=== PATIENT | female | born 1985 | race Caucasian/White ===

== ENCOUNTER → 2024-04-12 09:52 | Outpatient (CLI) | payer OTHER, SELFPAY | LOC: PHYS 09:53 | PROVIDERS: Family Provider Student in an Organized Health Care Education/Training Program; PCP Student in an Organized Health Care Education/Training Program; Referring Provider Orthopaedic Surgery; Visit Provider Orthopaedic Surgery | DX: G56.20 Lesion of ulnar nerve, unspecified upper limb (principal); G56.00 Carpal tunnel syndrome, unspecified upper limb | CPT/HCPCS: 95886; 95909 ==

== ENCOUNTER → 2024-07-03 14:40 | Outpatient (RCR) | payer OTHER, SELFPAY ==
--- NOTE | 2023-05-24 16:10 | PT.OIE ---
Current Diagnoses Noninflammatory disorder of vagina, unspecified (05/24/23) Visit Care Team Role Provider Type Shona Craig MD Attending Provider Non-Staff Family Provider Primary Care Provider Referring Provider Specialty: Medical Address: [address] [place] [address], [id number] Email: Physical Therapy Initial Evaluation PT-OP-A Visit Information Start: 05/20/23 18:43 Freq: Status: Active Protocol: Document 05/24/23 11:23 LRN (Rec: 05/24/23 12:04 LRN [id number]) Out-Patient Physical Therapy Visit Information Visit Information Visit Type Initial Evaluation Visit Start Time 11:23 Visit Stop Time 12:03 Visit Number 1 Evaluation Information Evaluation Date 05/24/23 Precautions Precautions Pt reported: hx of labial tearing during childbirth 4 yrs ago. PT-OP-B Current Condition Start: 05/20/23 18:43 Freq: Status: Active Protocol: Document 05/24/23 11:23 LRN (Rec: 05/24/23 12:04 LRN [id number]) Current Condition History of Current Condition Onset Date 4 yrs ago. Current Complaints Feeling of heaviness/pressure at end of day and with lifting . History of Current Condition Pt reports having her daughter 4 yrs ago in June required 1 push to get 10# baby deliviered. She denies having urinary or bowel problems, but has with working out and moving around a feeling of heaviness and discomfort, making her feel as though her lower abdomen seems swollen and sitting lower than it should. She notices with moving plants in her garden she feels discomfort and heaviness and must do Kegel or she feels tissues straining below. She reports being active prior to but has started exercising off/on for last 6 month with general body weight training and yoga . 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 Prior Treatments and Tests PT during to prepare her for childbirthing and for hip pain. Developmental History Developmental History G1, P1. Pt reports labial tearing during childbirth and thinks vaginally as well, unknown severity. History of R ankle reconstruction. Treatment Goals Patient/Caregiver Goals Pt goals: Relieve abdominal PF heaviness and pressure, improve PF strength, improve coordination of core intra- abdominal pressure relief with home activities, HEP. 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 PT-OP-C Subjective Start: 05/20/23 18:43 Freq: Status: Active Protocol: Document 05/24/23 11:23 LRN (Rec: 05/24/23 12:04 LRN [id number]) Patient Questionnaires Pelvic Pain and Urgency/Frequency Patient Symptom Scale Pelvic Pain Score 4 PT-OP-I Pelvic Floor Start: 05/20/23 18:43 Freq: Status: Active Protocol: Document 05/24/23 11:23 LRN (Rec: 05/24/23 12:16 LRN [id number]) Pelvic Floor Assessment Pelvic Clock Pelvic Clock 12-3 Tenderness Pelvic Clock 3-6 Tenderness Prolapse Prolapse Comments Not able to fully assess due to pt's contraceptive O-ring in place. Perineal Descent Resting Absent Bearing Present Contraction Ability Voluntary Contraction Weak Voluntary Relaxation Weak Manual Muscle Testing Left 1 Manual Muscle Testing Right 1 Manual Muscle Testing Anterior 0 Manual Muscle Testing Posterior 1 Muscle Endurance (Seconds) 2 Number of Quick Contractions In 10 2 Seconds Comments Pelvic Floor Comments PF strength at PF Clock 6, strength is 3/5. PT-OP-J Posture/Palpation/Skin Start: 05/20/23 18:43 Freq: Status: Active Protocol: Document 05/24/23 11:23 LRN (Rec: 05/24/23 12:04 LRN [id number]) Posture Evaluation Position Standing Head/C-Spine Posture Neutral Position T-Spine Posture Neutral L-Spine Posture Neutral Arm Posture (L) Internally Rotated,(R) Internally Rotated Pelvis Posture Neutral Weight Distribution Weight Shifted Anterior Hip Posture (L) Neutral,(R) Neutral,(L) Externally Rotated,(R) Externally Rotated Ankle/Foot Posture (L) Dorsiflexed,(R) Dorsiflexed,(L) Calcaneal Inversion Foot Arch (R) Low Arch,(R) No Arch PT-OP-K Range of Motion Start: 05/20/23 18:43 Freq: Status: Active Protocol: Document 05/24/23 11:23 LRN (Rec: 05/24/23 12:04 LRN [id number]) Lumbar Spine Range of Motion Lumbar Spine Active Degrees Testing Position Standing Flexion 90 Extension 25 Rotation Left 15 Rotation Right 40 Lateral Flexion Left 23 Lateral Flexion Right 23 ROM Limitations Soft Tissue Tightness Comments R shoulder and neck tightness with R trunk rotation. Hip Goniometric Range of Motion Hip Right Passive Testing Position Supine Internal Rotation 30 External Rotation 75 Left Passive Testing Position Supine Internal Rotation 30 External Rotation 75 PT-OP-M Strength Start: 05/20/23 18:43 Freq: Status: Active Protocol: Document 05/24/23 11:23 LRN (Rec: 05/24/23 12:04 LRN [id number]) Trunk Strength Trunk Manual Muscle Testing Core Stabilization Generally 4+/5 Hip Strength Hip Manual Muscle Testing Right Comments Strength is 5/5. Left Comments Strength is 5/5. PT-OP-Q Treatments Start: 05/20/23 18:43 Freq: Status: Active Protocol: Document 05/24/23 11:23 LRN (Rec: 05/24/23 12:12 LRN [id number]) Self-Care/Home Management Treatment Education Patient Education Home Exercise Program Other Education Discussed results of evaluation, goals, and plan of care (POC) with pt, discussed attendance/cx/dns policy; pt agreeable to goals, attendance /cx/dns policy and POC. Activities Self-Care/Home Management Activities Issued & reviewed HEP: Ellie ex's and discussed exercise of Quick Flicks, Long Holds and Aggravators. PT-OP-T Assessment and Plan Start: 05/20/23 18:43 Freq: Status: Active Protocol: Document 05/24/23 11:23 LRN (Rec: 05/24/23 12:04 LRN [id number]) Physical Therapy Assessment Rehab Potential Rehabilitation Potential Good Evaluation Complexity Number of Personal Factors/Comorbidities 1-2 Number of Body Systems Impaired 3 Clinical Presentation at Evaluation Evolving Impairments Impairments Pain,ROM,Strength Goals Four Impairment Decreased shavon hip IR PROM. Short Term Goal (STG) Improve hip IR PROM to 40-45 deg's. STG Duration 4 wks-06/24/23 Three Impairment Decreased PF strength and endurance. Short Term Goal (STG) Pt will be able to perform 5-6 quick PF contractions in 10 seconds. STG Duration 6 wks-07/08/23 State Director Goal (LTG) Pt will be able to sustain a pelvic floor contraction in supine x 10 seconds and in standing 5 secs with out upper abdominal activation. LTG Duration 12 wks-08/19/23 Two Impairment PF heaviness and pressure. Short Term Goal (STG) Pt educated in transfers to lessen core intra-abdominal pressure via coordination of proper breaths (rib cage expansion) with ADLs, transfers, body mechanics and exercise to decrease downward pressure on the PF. STG Duration 6 wks-07/08/23 State Director Goal (LTG) Pt will report an overall reduction in abdominal PF heaviness and pressure LTG Duration 12 wks-08/19/23 One Impairment Pt lacks an independent self care HEP. Short Term Goal (STG) Pt will be able to isolate a PF contraction without overuse of substitute muscles of abdominal, gluteal, and hip AD 's. STG Duration 6 wks-07/08/23 Fdc Goal (LTG) Pt will be independent in a self care HEP for PF strengthening exercises coordinating with breath and hip IR stretches. LTG Duration 12 wks-08/19/23 Assessment Summary Assessment Pt is a 37 yo female with complaints of PF heaviness and pressure in the absence of urinary or bowel dysfunction. The pt is very weak in her PF with discomfort in the L lateral wall of her PF, possbily due to tightness. She has gapping of her PF also indicating soft tissue tightness. Placement of her contraceptive ring made assessment of the deep PF not possible and difficulty identifying for prolapse; therefore further assesment will be performed at her next session as she reports it will be the week when she removes the ring. The pt has some tightness of her hip internal rotators, but hip strength is good. Core mobility is decreased with R rotation but strength is good. She has a mild DR with probable rotational weakness. The pt will benefit from skilled physical therapy for pt education, strengthening & ROM ex's, ther act training for posture, body mechanics and transfers, reduction of core intra-abdominal pressure, manual therapy and EMG biofeedback for PF strengthening. Physical Therapy Plan Frequency and Duration Frequency of Treatment 1x/Week Duration of treatment (weeks) 12 Plan of Care Start Date 05/24/23 Plan of Care End Date 08/19/23 Therapeutic Interventions Therapeutic Interventions Coordination Training,Home Exercise Program,Joint Mobilizations,Neuromuscular Re -education,Self-Care/Home Management,Soft Tissue Mobilization,Therapeutic Activities,Therapeutic Exercises Modalities Biofeedback,Electric Stimulation Next Visit Focus/Plan Next Note Type Treatment Note Next Visit Plan PF assessmsent for Deep PF strength and prolapse, PF STM of trP treatment and stretch, EMG biofeedback for pelvic floor strengthening and endurance training, abdominal tension release and coordination of diaphragmatic breathing with transfers & ADLs (pelvic decompression exercises).
--- NOTE | 2023-06-09 12:44 | PT.OTN ---
Current Diagnoses Noninflammatory disorder of vagina, unspecified (06/09/23) Physical Therapy Treatment Note PT-OP-A Visit Information Start: 05/20/23 18:43 Freq: Status: Active Protocol: Document 06/09/23 11:18 LRN (Rec: 06/09/23 12:41 LRN [id number]) Out-Patient Physical Therapy Visit Information Visit Information Visit Type Treatment Note Visit Start Time 11:18 Visit Stop Time 11:58 Visit Number 2 Evaluation Information Evaluation Date 05/24/23 Precautions Precautions Pt reported: hx of labial tearing during childbirth 4 yrs ago. PT-OP-B Current Condition Start: 05/20/23 18:43 Freq: Status: Active Protocol: Document 05/24/23 11:23 LRN (Rec: 05/24/23 12:04 LRN [id number]) Current Condition History of Current Condition Onset Date 4 yrs ago. Current Complaints Feeling of heaviness/pressure at end of day and with lifting . History of Current Condition Pt reports having her daughter 4 yrs ago in June required 1 push to get 10# baby mickeyiered. She denies having urinary or bowel problems, but has with working out and moving around a feeling of heaviness and discomfort, making her feel as though her lower abdomen seems swollen and sitting lower than it should. She notices with moving plants in her garden she feels discomfort and heaviness and must do Kegel or she feels tissues straining below. She reports being active prior to but has started exercising off/on for last 6 month with general body weight training and yoga . 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 Prior Treatments and Tests PT during to prepare her for childbirthing and for hip pain. Developmental History Developmental History G1, P1. Pt reports labial tearing during childbirth and thinks vaginally as well, unknown severity. History of R ankle reconstruction. Treatment Goals Patient/Caregiver Goals Pt goals: Relieve abdominal PF heaviness and pressure, improve PF strength, improve coordination of core intra- abdominal pressure relief with home activities, HEP. 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 PT-OP-C Subjective Start: 03/29/24 18:43 Freq: Status: Active Protocol: Document 06/09/23 11:18 LRN (Rec: 06/09/23 12:41 LRN [id number]) OP-PT Subjective Patient Comments Patient Comments Pt states she has been sick and coughing, but feels better now. PT-OP-I Pelvic Floor Start: 05/20/23 18:43 Freq: Status: Active Protocol: Document 06/09/23 11:18 LRN (Rec: 06/09/23 12:41 LRN [id number]) Pelvic Floor Assessment Pelvic Clock Pelvic Clock Other No tenderness around the PF clock Prolapse Cystocele Grade 2 Perineal Descent Resting Absent Bearing Present Contraction Ability Voluntary Contraction Weak Voluntary Relaxation Weak Manual Muscle Testing Left 1 Manual Muscle Testing Right 0 Manual Muscle Testing Anterior 0 Manual Muscle Testing Posterior 2 Muscle Endurance (Seconds) 2 Number of Quick Contractions In 10 2 Seconds PT-OP-J Posture/Palpation/Skin Start: 05/20/23 18:43 Freq: Status: Active Protocol: Document 05/24/23 11:23 LRN (Rec: 05/24/23 12:04 LRN [id number]) Posture Evaluation Position Standing Head/C-Spine Posture Neutral Position T-Spine Posture Neutral L-Spine Posture Neutral Arm Posture (L) Internally Rotated,(R) Internally Rotated Pelvis Posture Neutral Weight Distribution Weight Shifted Anterior Hip Posture (L) Neutral,(R) Neutral,(L) Externally Rotated,(R) Externally Rotated Ankle/Foot Posture (L) Dorsiflexed,(R) Dorsiflexed,(L) Calcaneal Inversion Foot Arch (R) Low Arch,(R) No Arch PT-OP-K Range of Motion Start: 05/20/23 18:43 Freq: Status: Active Protocol: Document 05/24/23 11:23 LRN (Rec: 05/24/23 12:04 LRN [id number]) Lumbar Spine Range of Motion Lumbar Spine Active Degrees Testing Position Standing Flexion 90 Extension 25 Rotation Left 15 Rotation Right 40 Lateral Flexion Left 23 Lateral Flexion Right 23 ROM Limitations Soft Tissue Tightness Comments R shoulder and neck tightness with R trunk rotation. Hip Goniometric Range of Motion Hip Right Passive Testing Position Supine Internal Rotation 30 External Rotation 75 Left Passive Testing Position Supine Internal Rotation 30 External Rotation 75 PT-OP-M Strength Start: 05/20/23 18:43 Freq: Status: Active Protocol: Document 05/24/23 11:23 LRN (Rec: 05/24/23 12:04 LRN [id number]) Trunk Strength Trunk Manual Muscle Testing Core Stabilization Generally 4+/5 Hip Strength Hip Manual Muscle Testing Right Comments Strength is 5/5. Left Comments Strength is 5/5. PT-OP-Q Treatments Start: 05/20/23 18:43 Freq: Status: Active Protocol: Document 06/09/23 11:18 LRN (Rec: 06/09/23 12:41 LRN [id number]) Therapeutic Exercises Supine Exercises Long Hold Kegels Supine Exercise Name Long Hold Kegels Reps/Minutes 5' Comments Assessed PF endurance (see above) Quick Flick Kegels Supine Exercise Name Quick Flick Kegels Reps/Minutes 5' Comments Assessed PF strength around the PF clock (see above) Other Exercises Vemg PF contractions Other Exercise Name Vemg stim for assist of PF contractions. Reps/Minutes 8' Comments Pt cued to give a little assist for relaxation between contractions. Neuro Re-Education Treatment Other Activities Vemg for PF awareness training Details PF stim for awareness training of proper PF contraction Reps/Duration 10' Comments Hooklie with legs on bolster. Extra time needed to determine max tolerated stim intensity for PF contraction. 1st session: 10:10 on/off, 50pps, intensity 18 2nd session: 5:10 on/off, 50pps, intensity 15 Self-Care/Home Management Treatment Education Patient Education Home Exercise Program Other Education Discussed the pt using coughing illnesses to perform aggrevator contraction strengthening. Activities Self-Care/Home Management Activities I/S pt to start walking program to improve circulation of PF ms. PT-OP-T Assessment and Plan Start: 05/20/23 18:43 Freq: Status: Active Protocol: Document 06/09/23 11:18 LRN (Rec: 06/09/23 12:41 LRN [id number]) Physical Therapy Assessment Goals Four Impairment Decreased shavon hip IR PROM. Short Term Goal (STG) Improve hip IR PROM to 40-45 deg's. STG Duration 4 wks-06/24/23 Three Impairment Decreased PF strength and endurance. Short Term Goal (STG) Pt will be able to perform 5-6 quick PF contractions in 10 seconds. STG Duration 6 wks-07/08/23 Drawing Machine Operator Goal (LTG) Pt will be able to sustain a pelvic floor contraction in supine x 10 seconds and in standing 5 secs with out upper abdominal activation. LTG Duration 12 wks-08/19/23 Two Impairment PF heaviness and pressure. Short Term Goal (STG) Pt educated in transfers to lessen core intra-abdominal pressure via coordination of proper breaths (rib cage expansion) with ADLs, transfers, body mechanics and exercise to decrease downward pressure on the PF. STG Duration 6 wks-07/08/23 Drawing Machine Operator Goal (LTG) Pt will report an overall reduction in abdominal PF heaviness and pressure LTG Duration 12 wks-08/19/23 One Impairment Pt lacks an independent self care HEP. Short Term Goal (STG) Pt will be able to isolate a PF contraction without overuse of substitute muscles of abdominal, gluteal, and hip AD 's. STG Duration 6 wks-07/08/23 Intermediate Goal (LTG) Pt will be independent in a self care HEP for PF strengthening exercises coordinating with breath and hip IR stretches. LTG Duration 12 wks-08/19/23 Assessment Summary Assessment Pt is a 37 yo female with complaints of PF heaviness and pressure in the absence of urinary or bowel dysfunction, but is very weak in her PF with discomfort in the L lateral wall of her PF initially. Today she demonstrates no tenderness of her PF; therefore no stretch needed, a cystocele grade 2, weakness of her PF and tightness of her R hip and lower abdomen. Physical Therapy Plan Frequency and Duration Frequency of Treatment 1x/Week Duration of treatment (weeks) 12 Plan of Care Start Date 05/24/23 Plan of Care End Date 08/19/23 Next Visit Focus/Plan Next Note Type Treatment Note Next Visit Plan Next: Start ex: eliptical or TM, ABdominal mobilization, R hip stretching. Education: coordination of diaphragmatic breathing with transfers & ADLs (pelvic decompression exercises). EMG biofeedback for pelvic floor strengthening and endurance training, abdominal tension release.
--- NOTE | 2023-06-14 16:32 | PT.OTN ---
Current Diagnoses Noninflammatory disorder of vagina, unspecified (06/14/23) Physical Therapy Treatment Note PT-OP-A Visit Information Start: 05/20/23 18:43 Freq: Status: Active Protocol: Document 06/14/23 10:35 LRN (Rec: 06/14/23 11:25 LRN [id number]) Out-Patient Physical Therapy Visit Information Visit Information Visit Type Treatment Note Visit Start Time 10:35 Visit Stop Time 11:23 Visit Number 3 Evaluation Information Evaluation Date 05/24/23 Precautions Precautions Pt reported: hx of labial tearing during childbirth 4 yrs ago. PT-OP-B Current Condition Start: 05/20/23 18:43 Freq: Status: Active Protocol: Document 05/24/23 11:23 LRN (Rec: 05/24/23 12:04 LRN [id number]) Current Condition History of Current Condition Onset Date 4 yrs ago. Current Complaints Feeling of heaviness/pressure at end of day and with lifting . History of Current Condition Pt reports having her daughter 4 yrs ago in June required 1 push to get 10# baby mickeyiered. She denies having urinary or bowel problems, but has with working out and moving around a feeling of heaviness and discomfort, making her feel as though her lower abdomen seems swollen and sitting lower than it should. She notices with moving plants in her garden she feels discomfort and heaviness and must do Kegel or she feels tissues straining below. She reports being active prior to but has started exercising off/on for last 6 month with general body weight training and yoga . 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 Prior Treatments and Tests PT during to prepare her for childbirthing and for hip pain. Developmental History Developmental History G1, P1. Pt reports labial tearing during childbirth and thinks vaginally as well, unknown severity. History of R ankle reconstruction. Treatment Goals Patient/Caregiver Goals Pt goals: Relieve abdominal PF heaviness and pressure, improve PF strength, improve coordination of core intra- abdominal pressure relief with home activities, HEP. 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 PT-OP-C Subjective Start: 03/29/24 18:43 Freq: Status: Active Protocol: Document 06/14/23 10:35 LRN (Rec: 06/14/23 11:25 LRN [id number]) OP-PT Subjective Patient Comments Patient Comments No changes, things aren't worse. Getting time to exercise. PT-OP-I Pelvic Floor Start: 05/20/23 18:43 Freq: Status: Active Protocol: Document 06/09/23 11:18 LRN (Rec: 06/09/23 12:41 LRN [id number]) Pelvic Floor Assessment Pelvic Clock Pelvic Clock Other No tenderness around the PF clock Prolapse Cystocele Grade 2 Perineal Descent Resting Absent Bearing Present Contraction Ability Voluntary Contraction Weak Voluntary Relaxation Weak Manual Muscle Testing Left 1 Manual Muscle Testing Right 0 Manual Muscle Testing Anterior 0 Manual Muscle Testing Posterior 2 Muscle Endurance (Seconds) 2 Number of Quick Contractions In 10 2 Seconds PT-OP-J Posture/Palpation/Skin Start: 05/20/23 18:43 Freq: Status: Active Protocol: Document 05/24/23 11:23 LRN (Rec: 05/24/23 12:04 LRN [id number]) Posture Evaluation Position Standing Head/C-Spine Posture Neutral Position T-Spine Posture Neutral L-Spine Posture Neutral Arm Posture (L) Internally Rotated,(R) Internally Rotated Pelvis Posture Neutral Weight Distribution Weight Shifted Anterior Hip Posture (L) Neutral,(R) Neutral,(L) Externally Rotated,(R) Externally Rotated Ankle/Foot Posture (L) Dorsiflexed,(R) Dorsiflexed,(L) Calcaneal Inversion Foot Arch (R) Low Arch,(R) No Arch PT-OP-K Range of Motion Start: 05/20/23 18:43 Freq: Status: Active Protocol: Document 05/24/23 11:23 LRN (Rec: 05/24/23 12:04 LRN [id number]) Lumbar Spine Range of Motion Lumbar Spine Active Degrees Testing Position Standing Flexion 90 Extension 25 Rotation Left 15 Rotation Right 40 Lateral Flexion Left 23 Lateral Flexion Right 23 ROM Limitations Soft Tissue Tightness Comments R shoulder and neck tightness with R trunk rotation. Hip Goniometric Range of Motion Hip Right Passive Testing Position Supine Internal Rotation 30 External Rotation 75 Left Passive Testing Position Supine Internal Rotation 30 External Rotation 75 PT-OP-M Strength Start: 05/20/23 18:43 Freq: Status: Active Protocol: Document 05/24/23 11:23 LRN (Rec: 05/24/23 12:04 LRN [id number]) Trunk Strength Trunk Manual Muscle Testing Core Stabilization Generally 4+/5 Hip Strength Hip Manual Muscle Testing Right Comments Strength is 5/5. Left Comments Strength is 5/5. PT-OP-Q Treatments Start: 05/20/23 18:43 Freq: Status: Active Protocol: Document 06/14/23 10:35 LRN (Rec: 06/14/23 11:25 LRN [id number]) Therapeutic Exercises Supine Exercises Piriformis stretch Supine Exercise Name Piriformis stretch - manual assist & indep (ankle over knee>KTC) Side right Reps/Minutes 3' Deep Breathing Supine Exercise Name 5-6 sec breaths Reps/Minutes 10x Long Hold Kegels Supine Exercise Name Long Hold Kegels w/rest after contract Reps/Minutes 3' Comments Pt needed to do a very small reverse Kegel for relaxation Quick Flick Kegels Supine Exercise Name Quick Flick Kegels - w/ rest after contraction Reps/Minutes 3' Comments Pt needed to do a very small reverse Kegel for relaxation Other Exercises Vemg PF contractions Other Exercise Name Vemg stim for assist of PF contractions. Reps/Minutes 3' Comments Pt cued to give a little assist for relaxation between contractions. Manual Therapy Treatment Soft Tissue Mobilization Lower Abdomen Body Location Urachus, bladder, superior glide of lower abdopmen Mobilization Type Sustained Pressure Intensity/Depth Moderate Body Position Hooklying Comments Legs on bolster. Neuro Re-Education Treatment Other Activities Vemg for PF awareness training Details PF stim for awareness training of proper PF relaxation after contraction Reps/Duration 8' Comments Hooklie with legs on bolster. Extra time needed to determine max tolerated stim intensity for PF contraction. 5:10 on/off, 50pps, intensity 17. Self-Care/Home Management Treatment Education Other Education Briefly discussed POC and need for more treatment visits. I /S pt to request to be put on waitlist if not offered. Education and discussion: coordination of diaphragmatic breathing with transfers & ADLs (pelvic decompression exercises). PT-OP-T Assessment and Plan Start: 05/20/23 18:43 Freq: Status: Active Protocol: Document 06/14/23 10:35 LRN (Rec: 06/14/23 11:25 LRN [id number]) Physical Therapy Assessment Goals Four Impairment Decreased shavon hip IR PROM. Short Term Goal (STG) Improve hip IR PROM to 40-45 deg's. STG Duration 4 wks-06/24/23 Three Impairment Decreased PF strength and endurance. Short Term Goal (STG) Pt will be able to perform 5-6 quick PF contractions in 10 seconds. STG Duration 6 wks-07/08/23 Longterm Goal (LTG) Pt will be able to sustain a pelvic floor contraction in supine x 10 seconds and in standing 5 secs with out upper abdominal activation. LTG Duration 12 wks-08/19/23 Two Impairment PF heaviness and pressure. Short Term Goal (STG) Pt educated in transfers to lessen core intra-abdominal pressure via coordination of proper breaths (rib cage expansion) with ADLs, transfers, body mechanics and exercise to decrease downward pressure on the PF. 06/14/23: Pt educated in core pressure mgmt through breath with transfers, ADLs & body mechanics. STG Duration 6 wks-07/08/23 progressed (need ed w/ex) Longterm Goal (LTG) Pt will report an overall reduction in abdominal PF heaviness and pressure LTG Duration 12 wks-08/19/23 One Impairment Pt lacks an independent self care HEP. Short Term Goal (STG) Pt will be able to isolate a PF contraction without overuse of substitute muscles of abdominal, gluteal, and hip AD 's. STG Duration 6 wks-07/08/23 [employer] Goal (LTG) Pt will be independent in a self care HEP for PF strengthening exercises coordinating with breath and hip IR stretches. LTG Duration 12 wks-08/19/23 Assessment Summary Assessment Pt is a 37 yo female with complaints of PF heaviness and pressure in the absence of urinary or bowel dysfunction ( tight abdominal region), but is very weak in her PF with discomfort in the L lateral wall of her PF initially. Pt hip R IR is only mildly stiff compared to L hip. Pt abdomen is very tight. Physical Therapy Plan Frequency and Duration Frequency of Treatment 1x/Week Duration of treatment (weeks) 12 Plan of Care Start Date 05/24/23 Plan of Care End Date 08/19/23 Next Visit Focus/Plan Next Note Type Treatment Note Next Visit Plan Next: Start ex: eliptical or TM, ABdominal mobilization, in 2 wks (06/28/23) recheck Hip IR ROM. EX: PF strengthening Manual: Abdominal release, core stab (no PF tenderness). EMG biofeedback for pelvic floor strengthening and endurance training, abdominal tension release.
--- NOTE | 2023-06-24 13:00 | PT.OTN ---
Current Diagnoses Noninflammatory disorder of vagina, unspecified (06/24/23) Physical Therapy Treatment Note PT-OP-A Visit Information Start: 05/20/23 18:43 Freq: Status: Active Protocol: Document 06/24/23 10:38 LRN (Rec: 06/24/23 11:21 LRN [id number]) Out-Patient Physical Therapy Visit Information Visit Information Visit Type Treatment Note Visit Start Time 10:38 Visit Stop Time 11:18 Visit Number 4 Evaluation Information Evaluation Date 05/24/23 Precautions Precautions Pt reported: hx of labial tearing during childbirth 4 yrs ago. PT-OP-B Current Condition Start: 05/20/23 18:43 Freq: Status: Active Protocol: Document 05/24/23 11:23 LRN (Rec: 05/24/23 12:04 LRN [id number]) Current Condition History of Current Condition Onset Date 4 yrs ago. Current Complaints Feeling of heaviness/pressure at end of day and with lifting . History of Current Condition Pt reports having her daughter 4 yrs ago in June required 1 push to get 10# baby mickeyiered. She denies having urinary or bowel problems, but has with working out and moving around a feeling of heaviness and discomfort, making her feel as though her lower abdomen seems swollen and sitting lower than it should. She notices with moving plants in her garden she feels discomfort and heaviness and must do Kegel or she feels tissues straining below. She reports being active prior to but has started exercising off/on for last 6 month with general body weight training and yoga . 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 Prior Treatments and Tests PT during to prepare her for childbirthing and for hip pain. Developmental History Developmental History G1, P1. Pt reports labial tearing during childbirth and thinks vaginally as well, unknown severity. History of R ankle reconstruction. Treatment Goals Patient/Caregiver Goals Pt goals: Relieve abdominal PF heaviness and pressure, improve PF strength, improve coordination of core intra- abdominal pressure relief with home activities, HEP. 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 PT-OP-C Subjective Start: 03/29/24 18:43 Freq: Status: Active Protocol: Document 06/24/23 10:38 LRN (Rec: 06/24/23 11:21 LRN [id number]) OP-PT Subjective Patient Comments Patient Comments Her heaviness in abdomen is not as noticeable and not as often felt. Pt feels after PF stim she has a good awareness of how to contract her PF. PT-OP-I Pelvic Floor Start: 05/20/23 18:43 Freq: Status: Active Protocol: Document 06/09/23 11:18 LRN (Rec: 06/09/23 12:41 LRN [id number]) Pelvic Floor Assessment Pelvic Clock Pelvic Clock Other No tenderness around the PF clock Prolapse Cystocele Grade 2 Perineal Descent Resting Absent Bearing Present Contraction Ability Voluntary Contraction Weak Voluntary Relaxation Weak Manual Muscle Testing Left 1 Manual Muscle Testing Right 0 Manual Muscle Testing Anterior 0 Manual Muscle Testing Posterior 2 Muscle Endurance (Seconds) 2 Number of Quick Contractions In 10 2 Seconds PT-OP-J Posture/Palpation/Skin Start: 05/20/23 18:43 Freq: Status: Active Protocol: Document 05/24/23 11:23 LRN (Rec: 05/24/23 12:04 LRN [id number]) Posture Evaluation Position Standing Head/C-Spine Posture Neutral Position T-Spine Posture Neutral L-Spine Posture Neutral Arm Posture (L) Internally Rotated,(R) Internally Rotated Pelvis Posture Neutral Weight Distribution Weight Shifted Anterior Hip Posture (L) Neutral,(R) Neutral,(L) Externally Rotated,(R) Externally Rotated Ankle/Foot Posture (L) Dorsiflexed,(R) Dorsiflexed,(L) Calcaneal Inversion Foot Arch (R) Low Arch,(R) No Arch PT-OP-K Range of Motion Start: 05/20/23 18:43 Freq: Status: Active Protocol: Document 05/24/23 11:23 LRN (Rec: 05/24/23 12:04 LRN [id number]) Lumbar Spine Range of Motion Lumbar Spine Active Degrees Testing Position Standing Flexion 90 Extension 25 Rotation Left 15 Rotation Right 40 Lateral Flexion Left 23 Lateral Flexion Right 23 ROM Limitations Soft Tissue Tightness Comments R shoulder and neck tightness with R trunk rotation. Hip Goniometric Range of Motion Hip Right Passive Testing Position Supine Internal Rotation 30 External Rotation 75 Left Passive Testing Position Supine Internal Rotation 30 External Rotation 75 PT-OP-M Strength Start: 05/20/23 18:43 Freq: Status: Active Protocol: Document 05/24/23 11:23 LRN (Rec: 05/24/23 12:04 LRN [id number]) Trunk Strength Trunk Manual Muscle Testing Core Stabilization Generally 4+/5 Hip Strength Hip Manual Muscle Testing Right Comments Strength is 5/5. Left Comments Strength is 5/5. PT-OP-Q Treatments Start: 05/20/23 18:43 Freq: Status: Active Protocol: Document 06/24/23 10:38 LRN (Rec: 06/24/23 11:21 LRN [id number]) Cardio Equipment Elliptical Duration (Minutes) 8 Resistance 1 Other 4'xtra time for set up. Cued to breath and avoid up/down motion. Therapeutic Exercises Supine Exercises Piriformis stretch Supine Exercise Name Piriformis stretch - manual assist & indep (ankle over knee>KTC) Side right Reps/Minutes 2' Deep Breathing Supine Exercise Name Working up to 5-6 sec breaths & improve awareness of PF mvmt Reps/Minutes 5' Comments Cued to slow breath & become aware of mvmt of PF. Prone Exercises POH Prone Exercise Name Prone on Hands: 5-6 inhale with abdominal stretch, quick exhale Reps/Minutes 8x Other Exercises Child's pose Other Exercise Name Child's pose for abdominal stretch during inhale Reps/Minutes 3x slow breathing. Vemg PF contractions Other Exercise Name Vemg stim for assist of PF contractions. Reps/Minutes 3' Comments Pt cued to give a little assist for relaxation between contractions. Manual Therapy Treatment Soft Tissue Mobilization PF Body Location L lateral wall stretching, f/b active contraction strengthening at end. Mobilization Type Sustained Pressure Intensity/Depth Moderate Body Position Hooklying PT-OP-T Assessment and Plan Start: 05/20/23 18:43 Freq: Status: Active Protocol: Document 06/24/23 10:38 LRN (Rec: 06/24/23 11:21 LRN [id number]) Physical Therapy Assessment Goals Four Impairment Decreased shavon hip IR PROM. Short Term Goal (STG) Improve hip IR PROM to 40-45 deg's. STG Duration 4 wks-06/24/23 Three Impairment Decreased PF strength and endurance. Short Term Goal (STG) Pt will be able to perform 5-6 quick PF contractions in 10 seconds. STG Duration 6 wks-07/08/23 Bag Cutter Goal (LTG) Pt will be able to sustain a pelvic floor contraction in supine x 10 seconds and in standing 5 secs with out upper abdominal activation. LTG Duration 12 wks-08/19/23 Two Impairment PF heaviness and pressure. Short Term Goal (STG) Pt educated in transfers to lessen core intra-abdominal pressure via coordination of proper breaths (rib cage expansion) with ADLs, transfers, body mechanics and exercise to decrease downward pressure on the PF. 06/14/23: Pt educated in core pressure mgmt through breath with transfers, ADLs & body mechanics. 06/24/23: Pt educated in breathwork with ex on Eliptical. STG Duration 6 wks-07/08/23 progressed (need ed w/ex) Bag Cutter Goal (LTG) Pt will report an overall reduction in abdominal PF heaviness and pressure LTG Duration 12 wks-08/19/23 One Impairment Pt lacks an independent self care HEP. Short Term Goal (STG) Pt will be able to isolate a PF contraction without overuse of substitute muscles of abdominal, gluteal, and hip AD 's. STG Duration 6 wks-07/08/23 Half-Way Goal (LTG) Pt will be independent in a self care HEP for PF strengthening exercises coordinating with breath and hip IR stretches. LTG Duration 12 wks-08/19/23 Assessment Summary Assessment Pt is a 37 yo female with complaints of PF heaviness and pressure in the absence of urinary or bowel dysfunction ( tight abdominal region), but is very weak in her PF with discomfort in the L lateral wall of her PF initially. Pt hip R IR is only mildly stiff compared to L hip. Today, pt was able to perform a PF contraction after stretching, but the L side needed help of hip AD's/IR's to get better contraction. Pt's ankles invert during eliptical exercise, wearing slip on summer shoes. Physical Therapy Plan Frequency and Duration Frequency of Treatment 1x/Week Duration of treatment (weeks) 12 Plan of Care Start Date 05/24/23 Plan of Care End Date 08/19/23 Next Visit Focus/Plan Next Note Type Treatment Note Next Visit Plan Next: remeasure Hip IR/ER ROM & Vemg assessment/ strengthening & endurance training. Eliptical warm up before ABdominal mobilization. EX: PF strengthening Manual: Abdominal release, core stab (no PF tenderness). EMG biofeedback for pelvic floor strengthening and endurance training, abdominal tension release.
--- NOTE | 2024-07-03 12:02 | PT.OPDS ---
Current Diagnoses Noninflammatory disorder of vagina, unspecified (06/24/23) Visit Care Team Role Provider Type Shona Craig MD Attending Provider Non-Staff Family Provider Primary Care Provider Referring Provider Specialty: Medical Address: [address] [place] [address], [id number] Email: Visit Number Visit Number 4 Discharge Summary PT-OP-B Current Condition Start: 05/20/23 18:43 Freq: Status: Active Protocol: Document 05/24/23 11:23 LRN (Rec: 05/24/23 12:04 LRN [id number]) Current Condition History of Current Condition Onset Date 4 yrs ago. Current Complaints Feeling of heaviness/pressure at end of day and with lifting . History of Current Condition Pt reports having her daughter 4 yrs ago in June required 1 push to get 10# baby deliviered. She denies having urinary or bowel problems, but has with working out and moving around a feeling of heaviness and discomfort, making her feel as though her lower abdomen seems swollen and sitting lower than it should. She notices with moving plants in her garden she feels discomfort and heaviness and must do Kegel or she feels tissues straining below. She reports being active prior to but has started exercising off/on for last 6 month with general body weight training and yoga . 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 Prior Treatments and Tests PT during to prepare her for childbirthing and for hip pain. Developmental History Developmental History G1, P1. Pt reports labial tearing during childbirth and thinks vaginally as well, unknown severity. History of R ankle reconstruction. Treatment Goals Patient/Caregiver Goals Pt goals: Relieve abdominal PF heaviness and pressure, improve PF strength, improve coordination of core intra- abdominal pressure relief with home activities, HEP. 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 PT-OP-C Subjective Start: 05/20/23 18:43 Freq: Status: Active Protocol: Document 06/24/23 10:38 LRN (Rec: 06/24/23 11:21 LRN [id number]) OP-PT Subjective Patient Comments Patient Comments Her heaviness in abdomen is not as noticeable and not as often felt. Pt feels after PF stim she has a good awareness of how to contract her PF. PT-OP-I Pelvic Floor Start: 05/20/23 18:43 Freq: Status: Active Protocol: Document 06/09/23 11:18 LRN (Rec: 06/09/23 12:41 LRN [id number]) Pelvic Floor Assessment Pelvic Clock Pelvic Clock Other No tenderness around the PF clock Prolapse Cystocele Grade 2 Perineal Descent Resting Absent Bearing Present Contraction Ability Voluntary Contraction Weak Voluntary Relaxation Weak Manual Muscle Testing Left 1 Manual Muscle Testing Right 0 Manual Muscle Testing Anterior 0 Manual Muscle Testing Posterior 2 Muscle Endurance (Seconds) 2 Number of Quick Contractions In 10 2 Seconds PT-OP-J Posture/Palpation/Skin Start: 05/20/23 18:43 Freq: Status: Active Protocol: Document 05/24/23 11:23 LRN (Rec: 05/24/23 12:04 LRN [id number]) Posture Evaluation Position Standing Head/C-Spine Posture Neutral Position T-Spine Posture Neutral L-Spine Posture Neutral Arm Posture (L) Internally Rotated,(R) Internally Rotated Pelvis Posture Neutral Weight Distribution Weight Shifted Anterior Hip Posture (L) Neutral,(R) Neutral,(L) Externally Rotated,(R) Externally Rotated Ankle/Foot Posture (L) Dorsiflexed,(R) Dorsiflexed,(L) Calcaneal Inversion Foot Arch (R) Low Arch,(R) No Arch PT-OP-K Range of Motion Start: 05/20/23 18:43 Freq: Status: Active Protocol: Document 05/24/23 11:23 LRN (Rec: 05/24/23 12:04 LRN [id number]) Lumbar Spine Range of Motion Lumbar Spine Active Degrees Testing Position Standing Flexion 90 Extension 25 Rotation Left 15 Rotation Right 40 Lateral Flexion Left 23 Lateral Flexion Right 23 ROM Limitations Soft Tissue Tightness Comments R shoulder and neck tightness with R trunk rotation. Hip Goniometric Range of Motion Hip Right Passive Testing Position Supine Internal Rotation 30 External Rotation 75 Left Passive Testing Position Supine Internal Rotation 30 External Rotation 75 PT-OP-M Strength Start: 05/20/23 18:43 Freq: Status: Active Protocol: Document 05/24/23 11:23 LRN (Rec: 05/24/23 12:04 LRN [id number]) Trunk Strength Trunk Manual Muscle Testing Core Stabilization Generally 4+/5 Hip Strength Hip Manual Muscle Testing Right Comments Strength is 5/5. Left Comments Strength is 5/5. PT-OP-T Assessment and Plan Start: 05/20/23 18:43 Freq: Status: Active Protocol: Document 07/03/24 12:00 KJ (Rec: 07/03/24 12:02 KJ Laptop) Physical Therapy Assessment Goals Four Impairment Decreased shavon hip IR PROM. Short Term Goal (STG) Improve hip IR PROM to 40-45 deg's. STG Duration 4 wks-06/24/23 Three Impairment Decreased PF strength and endurance. Short Term Goal (STG) Pt will be able to perform 5-6 quick PF contractions in 10 seconds. STG Duration 6 wks-07/08/23 Catalyst Concentration Operator Goal (LTG) Pt will be able to sustain a pelvic floor contraction in supine x 10 seconds and in standing 5 secs with out upper abdominal activation. LTG Duration 12 wks-08/19/23 Two Impairment PF heaviness and pressure. Short Term Goal (STG) Pt educated in transfers to lessen core intra-abdominal pressure via coordination of proper breaths (rib cage expansion) with ADLs, transfers, body mechanics and exercise to decrease downward pressure on the PF. 06/14/23: Pt educated in core pressure mgmt through breath with transfers, ADLs & body mechanics. 06/24/23: Pt educated in breathwork with ex on Eliptical. STG Duration 6 wks-07/08/23 progressed (need ed w/ex) Care Home Goal (LTG) Pt will report an overall reduction in abdominal PF heaviness and pressure LTG Duration 12 wks-08/19/23 One Impairment Pt lacks an independent self care HEP. Short Term Goal (STG) Pt will be able to isolate a PF contraction without overuse of substitute muscles of abdominal, gluteal, and hip AD 's. STG Duration 6 wks-07/08/23 Catalyst Concentration Operator Goal (LTG) Pt will be independent in a self care HEP for PF strengthening exercises coordinating with breath and hip IR stretches. LTG Duration 12 wks-08/19/23 Progress Towards Goals Progress Towards Goals Slow Progress - Other Progress Comments Progress toward goals was not assessed due to patient cancelling remaining appointments. Assessment Summary Assessment Pt attended initial evaluation on 05/24/23 and subsequently attended 3 visits. She reported decreased heaviness feeling. Her last visit was on 06/24/23. She cancelled all remaining visits and did not complete the course of treatment. Physical Therapy Plan Discharge Physical Therapy Discharge Reasons No Longer Attending PT
== END | disposition home or self-care (01) ==
LOC: PHYS 05-24 11:03
PROVIDERS: Family Provider Student in an Organized Health Care Education/Training Program; PCP Student in an Organized Health Care Education/Training Program; Referring Provider Student in an Organized Health Care Education/Training Program; Visit Provider Student in an Organized Health Care Education/Training Program
DX: N89.9 Noninflammatory disorder of vagina, unspecified (principal)
CPT/HCPCS: 97110; 97112; 97140; 97162; 97535